=== PATIENT | male | born 1960 | race Hispanic/Latino ===

== ENCOUNTER 2019-12-16 00:19 | Inpatient (IN) | payer OTHER ==
[2019-12-16] VITALS (13 sets, daily range): BP systolic 95–136; BP diastolic 48–91
[~2019-12-16] VITALS: Ht 165.1 cm; Wt 88.9 kg
[2019-12-16 00:58] LABS: BASOPHILS % 0.2 % (0.0-1.0); EOSINOPHILS # (AUTO) 0.6 (0.0-0.4); EOSINOPHILS % 5.1 % (0.0-6.0); HEMATOCRIT 41.9 % (38.2-49.6); HEMOGLOBIN 14.1 g/dL (14.0-18.0); LYMPHOCYTES # (AUTO) 5.8 (1.0-3.2); LYMPHOCYTES % 50.7 % (18.0-39.1); MEAN CORPUSCULAR HEMOGLOBIN 29.4 pg (28-32); MEAN CORPUSCULAR HGB CONC 33.7 g/dL (31-35); MEAN CORPUSCULAR VOLUME 87.5 fL (81-99); MONOCYTES % 9.1 % (4.4-11.3); NEUTROPHILS % 34.6 % (38.7-80.0); PLATELET COUNT 229 x10e3/uL (140-360); RED BLOOD COUNT 4.79 x10e6/uL (4.3-5.7); RED CELL DISTRIBUTION WIDTH 12.9 % (11.7-14.4)
[2019-12-16] MEDS ORDERED: NITROGLYCERIN 2% OINT 1 GM PKT TOP ONE (01:00)
[2019-12-16] MEDS ORDERED: ASPIRIN 325 MG TAB PO ONE ×2 (01:00→09:00)
[2019-12-16] MEDS ORDERED: ASPIRIN 81 MG CHEW TAB ONE (01:01)
[2019-12-16] MEDS ORDERED: NITROGLYCERIN 2% OINT 1 GM PKT ONE (01:02)
[2019-12-16 01:23] LABS: ALANINE AMINOTRANSFERASE 21 IU/L (0-55); ALBUMIN 3.8 g/dL (3.5-5.0); ALKALINE PHOSPHATASE 74 IU/L (40-150); ANION GAP 13.3 mmol/L (8-16); BLOOD UREA NITROGEN 18 mg/dL (7-26); BUN/CREATININE RATIO 19 (6-25); CARBON DIOXIDE 26 mmol/L (22-29); CHLORIDE 105 mmol/L (98-107); CREATINE KINASE 91 IU/L (30-200); CREATININE, SERUM 0.96 mg/dL (0.72-1.25); EST GLOMERULAR FILTRATION RATE > 60 ML/MIN (60-); GLUCOSE 122 mg/dL (74-118); POTASSIUM 3.3 mmol/L (3.5-5.1); SODIUM 141 mmol/L (136-145)
--- NOTE | 2019-12-16 01:25 | Diagnostic Imaging Report ---
EXAMINATION: CHEST SINGLE (PORTABLE) INDICATION: Code STEMI COMPARISON: None FINDINGS: TUBES and LINES: None. LUNGS: Normal lung volumes. Lungs are clear. No consolidations. Mild prominence of central pulmonary vasculature. PLEURA: No pleural effusion or pneumothorax. HEART AND MEDIASTINUM: The cardiomediastinal silhouette is borderline enlarged. BONES AND SOFT TISSUES: No acute osseous lesion. Soft tissues are unremarkable. UPPER ABDOMEN: No free air under the diaphragm. IMPRESSION: Borderline cardiomegaly and pulmonary vascular congestion. Signed by: Jose A Loving DO on 12/16/2019 1:21 AM
[2019-12-16] MEDS ORDERED: MIDAZOLAM HCL 2 MG/2 ML VIAL ONE (01:33)
[2019-12-16] MEDS ORDERED: HEPARIN SOD (PORCINE) 1000 UNIT/ML 30ML ONE (01:33)
[2019-12-16] MEDS ORDERED: FENTANYL CITRATE/PF 100MCG/2 ML INJ ONE (01:34)
[2019-12-16] MEDS ORDERED: LIDOCAINE HCL 2% LOCAL 20 ML VIAL ONE (01:34)
[2019-12-16] MEDS ORDERED: HEPARIN SOD/SOD CHLORIDE 2,000 ML ONE (01:34)
[2019-12-16] MEDS ORDERED: IOPAMIDOL 370 MG/ML 200 ML INFUS..BTL INJ ONE (01:34)
[2019-12-16] MEDS ORDERED: SODIUM CHLORIDE 0.9% 1000ML 1,000 ML ONE (01:34)
[2019-12-16] MEDS ORDERED: NITROGLYCERIN/D5W 200 MCG/ML 250 ML ONE (01:34)
[2019-12-16] MEDS ORDERED: TICAGRELOR 90 MG TABLET ONE (01:53)
--- NOTE | 2019-12-16 02:01 | Emergency Department Note ---
History of Present Illnes History of Present Illness Chief Complaint: Chest Pain History of Present Illness This is a 59 year old male arrives to ED with substernal chest pain radiating neck started prior to arrival. Patient states he was getting ready for bed when the pain started. Patient states the pain started while he was at rest. Patient denies any diaphoresis, states pain is radiating to his neck sharp in nature. Patient denies chest pain like this in the past history of hypertension Arrival Mode: Car Radiation: neck Severity: moderate Onset quality: sudden Timing of current episode: constant Progression: worsening Chronicity: new Relieving factors: none Exacerbating factors: none Past Medical/Family History Physician Review I have reviewed the patient's past medical and family history. Any updates have been documented here. Past Medical History Recent Fever: No Clinical Suspicion of Infectio: No New/Unexplained Change in Ment: No Past Medical History: Hypertension Past Surgical History: None Social History Smoking Cessation: Never Smoker Counseling Performed: No Alcohol Use: None Any Illegal Drug Use: No TB Exposure/Symptoms: No Physically hurt or threatened: No Family History Family history of heart diseas: No Other Last Tetanus: UTD Any Pre-Existing Lines (PICC,: No Is patient up to date on immun: Yes Last Flu: DENIES Last Pneumovax: DENIES Review of Systems Review of Systems Constitutional: no symptoms EENTM: no symptoms Cardiovascular: chest pain Respiratory: no symptoms Gastrointestinal: no symptoms Genitourinary: no symptoms Musculoskeletal: no symptoms Neurological: no symptoms Psychological: no symptoms Endocrine: no symptoms Hematological/Lymphatic: no symptoms Review of other systems All other systems reviewed and negative. Physical Exam Related Data Allergies: Coded Allergies: No Known Allergies (Unverified , 12/16/19) Triage Vital Signs Vital Signs Date Time Temp Pulse Resp B/P (MAP) Pulse Ox O2 Delivery O2 Flow Rate FiO2 12/16/19 00:27 97.4 62 17 157/96 98 Vital signs reviewed: Yes Physical Exam CONSTITUTIONAL Constitutional: well-developed, well-nourished, ill appearing HENT HENT: normocephalic, atraumatic, oropharynx clear/moist, nose normal HENT L/R: left ext ear normal, right ext ear normal EYES Eyes: PERRL, conjunctivae normal NECK Neck: ROM normal PULMONARY Pulmonary: effort normal, breath sounds normal CARDIOVASCULAR Cardiovascular: regular rhythm, heart sounds normal, capillary refill normal, normal rate GASTROINTESTINAL Abdominal: soft, nontender, bowel sounds normal GENITOURINARY Genitourinary: exam deferred SKIN Skin: warm, dry MUSCULOSKELETAL Musculoskeletal: ROM normal NEUROLOGICAL Neurological: alert, oriented x 3, no gross motor or sensory deficits PSYCHOLOGICAL Psychological: mood/affect normal, judgement normal Results Laboratory Result Diagram: 12/16/19 0035 12/16/19 0035 Laboratory Laboratory Tests Test 12/16/19 00:35 White Blood Count 11.43 x10e3/uL (4.8-10.8) Red Blood Count 4.79 x10e6/uL (4.3-5.7) Hemoglobin 14.1 g/dL (14.0-18.0) Hematocrit 41.9 % (38.2-49.6) Mean Corpuscular Volume 87.5 fL (81-99) Mean Corpuscular Hemoglobin 29.4 pg (28-32) Mean Corpuscular Hemoglobin Concent 33.7 g/dL (31-35) Red Cell Distribution Width 12.9 % (11.7-14.4) Platelet Count 229 x10e3/uL (140-360) Neutrophils (%) (Auto) 34.6 % (38.7-80.0) Lymphocytes (%) (Auto) 50.7 % (18.0-39.1) Monocytes (%) (Auto) 9.1 % (4.4-11.3) Eosinophils (%) (Auto) 5.1 % (0.0-6.0) Basophils (%) (Auto) 0.2 % (0.0-1.0) Neutrophils # (Auto) 4.0 (2.1-6.9) Lymphocytes # (Auto) 5.8 (1.0-3.2) Monocytes # (Auto) 1.0 (0.2-0.8) Eosinophils # (Auto) 0.6 (0.0-0.4) Basophils # (Auto) 0.0 (0.0-0.1) Absolute Immature Granulocyte (auto 0.03 x10e3/uL (0-0.1) Sodium Level 141 mmol/L (136-145) Potassium Level 3.3 mmol/L (3.5-5.1) Chloride Level 105 mmol/L (98-107) Carbon Dioxide Level 26 mmol/L (22-29) Anion Gap 13.3 mmol/L (8-16) Blood Urea Nitrogen 18 mg/dL (7-26) Creatinine 0.96 mg/dL (0.72-1.25) Estimat Glomerular Filtration Rate > 60 ML/MIN (60-) BUN/Creatinine Ratio 19 (6-25) Glucose Level 122 mg/dL (74-118) Calcium Level 9.0 mg/dL (8.4-10.2) Total Bilirubin 0.2 mg/dL (0.2-1.2) Aspartate Amino Transf (AST/SGOT) 15 IU/L (5-34) Alanine Aminotransferase (ALT/SGPT) 21 IU/L (0-55) Alkaline Phosphatase 74 IU/L (40-150) Creatine Kinase 91 IU/L (30-200) Creatine Kinase MB 2.40 ng/mL (0-4.3) Troponin I 0.05 ng/mL (0.0-0.40) Total Protein 7.7 g/dL (6.5-8.1) Albumin 3.8 g/dL (3.5-5.0) Globulin 3.9 g/dL (2.3-3.5) Albumin/Globulin Ratio 1.0 (0.8-2.0) Lab results reviewed: Yes Imaging Imaging results reviewed: Yes Impressions IMPRESSION: Borderline cardiomegaly and pulmonary vascular congestion. Procedures 12 Lead ECG Interpretation Deli Worker: Interpreted by ED physician Prior POND WORKER tracings: reviewed Rhythm: sinus rhythm Rate: normal QRS axis: normal ST segment elevation: V2 Clinical Impression: abnormal ECG (concerns for ST elevations in isolated lead with possible T wave inversions in lead 2, however, does not meet official STEMI criteria) Critical Care Time Total Critical Care Time (min): 45 Critcal care necessary due to: circulatory failure Subsequent provider I assumed direction of critical care for this patient from another provider of my specialty. Assessment & Plan Reassessment Reassessment EKG done at [address] concerning for possible early ST elevations in V2/V3 with some reciprocal changes in inferior leads, however, did not meet official STEMI criteria. Repeat EKG requested 20 minutes which showed marked ST elevations in lateral leads V2 through the V6 with reciprocal changes in inferior leads 2, 3 and aVF. Patient's history very concerning given sudden onset of crushing chest pain 30 minutes prior to arrival. Aspirin 325, nitroglycerin given immediately upon arrival, STEMI activated at 0057 upon review of second EKG Dr. Thomas informed, patient taken to Lumber Yard Worker Assessment & Plan Final Impression: (1) STEMI INVOLVING LEFT ANTERIOR DESCENDING CORONARY ARTERY Assessment & Plan Lumber Yard Worker activated at 005 CBC, CMP, cardiac markers casing mixer informed Last Vital Signs Date Time Temp Pulse Resp B/P (MAP) Pulse Ox O2 Delivery O2 Flow Rate FiO2 12/16/19 00:27 97.4 62 17 157/96 98 Medications in the ED Aspirin 325 mg ONCE ONCE PO ; Start 12/16/19 at 01:00; Stop 12/16/19 at 01:01 Nitroglycerin 1 gm ONCE ONCE TOP ; Start 12/16/19 at 01:00; Stop 12/16/19 at 01:01 Aspirin 324 mg STK-MED ONCE .ROUTE ; Start 12/16/19 at 01:01; Stop 12/16/19 at 00:56; Status DC Nitroglycerin 1 gm STK-MED ONCE .ROUTE ; Start 12/16/19 at 01:02; Stop 12/16/19 at 00:57; Status DC Heparin Sodium (Porcine) 30,000 unit STK-MED ONCE .ROUTE ; Start 12/16/19 at 01:33; Stop 12/16/19 at 01:29; Status DC Midazolam HCl 2 mg STK-MED ONCE .ROUTE ; Start 12/16/19 at 01:33; Stop 12/16/19 at 01:29; Status DC Fentanyl Citrate 100 mcg STK-MED ONCE .ROUTE ; Start 12/16/19 at 01:34; Stop 12/16/19 at 01:29; Status DC Lidocaine HCl 400 mg STK-MED ONCE .ROUTE ; Start 12/16/19 at 01:34; Stop 12/16/19 at 01:29; Status DC Heparin Sodium/ Sodium Chloride 2,000 ml @ ud STK-MED ONCE .ROUTE ; Start 12/16/19 at 01:34; Stop 12/16/19 at 01:29; Status DC Iopamidol 148,000 mg STK-MED ONCE INJ ; Start 12/16/19 at 01:34; Stop 12/16/19 at 01:29; Status DC Sodium Chloride 1,000 ml @ ud STK-MED ONCE .ROUTE ; Start 12/16/19 at 01:34; Stop 12/16/19 at 01:29; Status DC Nitroglycerin/ Dextrose 250 ml @ STK-MED ONCE .ROUTE ; Start 12/16/19 at 01:34; Stop 12/16/19 at 01:29; Status DC EMRE YIP, December 16, 2019 02:01
[2019-12-16] MEDS ORDERED: ATROPINE SULFATE 0.1 MG/ML 10ML SYR ONE (02:10)
--- OUTSIDE RECORDS SUMMARY | 2019-12-16 03:25 | XMS REPORT ---
Author Author [facility] t Organization [facility] Address [address] [place] [address] [address] [place] [address] Phone Unavailable Care Team Providers Care Line Leader Name Role Phone MD Lm FOX PCP Dinesh YIP Attfredy Unavailable Problems This patient has no known problems. Allergies, Adverse Reactions, Alerts This patient has no known allergies or adverse reactions. Social History Social Habit Start Date Stop Date Quantity Comments Source Sex Assigned At 1960 00:00:00 1960 00:00:00 Male [facility] Medications This patient has no known medications. Vital Signs Vital Name Observation Time Observation Value Comments Source Weight 2019-12-16 00:27:00 196 [lb_av] [facility] BMI (Body Mass Index) 2019-12-16 00:27:00 32.6 kg/m2 [facility] Procedures This patient has no known procedures. Encounters Start Date/Time End Date/Time Encounter Type [facility] Encounter ID Source 2019-12-16 00:19:00 2019-12-16 01:30:00 Departed Emergency Room 1 EMRE YIP [facility] [id number] I [facility] Results Test Description Test Time Test Comments Results Result Comments Source CHEST SINGLE (PORTABLE) 2019-12-16 01:20:00 [facility] [address] [place], [place] [address] Patient Name: CHYNA DUNLAP MR #: [id number] : 1960 Age/Sex: 59/M Req #: [id number] Adm Physician: Ordered by: EMRE YIP DO Report #: [id number] Location: ER Room/Bed: Procedure: [id number] DX/CHEST SINGLE (PORTABLE) Exam Date: 12/16/19 Exam Time: 0105 REPORT STATUS: Signed EXAMINATION: CHEST SINGLE (PORTABLE) INDICATION: Code STEMI COMPARISON: None FINDINGS: TUBES and LINES: None. LUNGS: Normal lung volumes. Lungs are clear. No consolidations. Mild prominence of central pulmonary vasculature. PLEURA: No pleural effusion or pneumothorax. HEART AND MEDIASTINUM: The cardiomediastinal silhouette is borderline enlarged. BONES AND SOFT TISSUES: No acute osseous lesion. Soft tissues are unremarkable. UPPER ABDOMEN: No free air under the diaphragm. IMPRESSION: Borderline cardiomegaly and pulmonary vascular congestion. Signed by: Jose A Loving DO on 12/16/2019 1:21 AM Dictated By: JOSE A LOVING DO 0 Transcribed By: KATHERINE on 12/16/19120 COPY TO: EMRE YIP DO Blood leukocytes automated count (number/volume) 2019-12-16 00:35:00 Test Item White Blood Count (test code = 6690-2) 11.43 4.8-10.8 [facility] (number/volume)2019-12-16 00:35:00* Test Item Value Reference Range Interpretation Comments Red Blood Count (test code = 789-8) 4.79 4.3-5.7 [facility] measurement (moles/volume)2019-12-16 00:35:00* Test Item Value Reference Range Interpretation Comments Hemoglobin (test code = 70152-3) 14.1 14.0-18.0 [facility] hematocrit (volume fraction)2019-12-16 00:35:00* Test Item Value Reference Range Interpretation Comments Hematocrit (test code = 4544-3) 41.9 38.2-49.6 [facility] eryth[facility] mean corpuscular [id number] 00:35:00* Test Item Value Reference Range Interpretation Comments Mean Corpuscular Volume (test code = 787-2) 87.5 81-99 [facility] mean corpuscular hemoglobin (mass per erythrocyte)2019-12-16 00:35:00* Test Item Value Reference Range Interpretation Comments Mean Corpuscular Hemoglobin (test code = 785-6) 29.4 28-32 [facility] erythrocyte mean corpuscular hemoglobin concentration measurement (mass/volume)2019-12-16 00:35:00* Test Item Value Reference Range Interpretation Comments Mean Corpuscular Hemoglobin Concent (test code = 786-4) 33.7 31-35 [facility] HospitalRDW [id number]-[id number] 00:35:00* Test Item Value Reference Range Interpretation Comments Red Cell Distribution Width (test code = 37443-3) 12.9 11.7 -14.4 [facility] blood platelet count (count/volume)2019-12-16 00:35:00* Test Item Value Reference Range Interpretation Comments Platelet Count (test code = 777-3) 229 140-360 [facility]Aut[facility] segmented neutrophil count as percentage of total xuqjutyjki6366-13-09 00:35:00* Test Item Value Reference Range Interpretation Comments Neutrophils (%) (Auto) (test code = 52333-1) 34.6 38.7-80.0 [facility]Autb[facility]ed blood lymphocyte count as percentage ot total bysnqsnjog0293-52-20 00:35:00* Test Item Value Reference Range Interpretation Comments Lymphocytes (%) (Auto) (test code = 736-9) 50.7 18.0-39.1 [facility]Autom[facility] blood monocyte count as percentage of total jlkpjdvvzi5637-04-34 00:35:00* Test Item Value Reference Range Interpretation Comments Monocytes (%) (Auto) (test code = 5905-5) 9.1 4.4-11.3 [facility] blood eosinophil count as percentage of total ihchxbmooo4175-78-90 00:35:00* Test Item Value Reference Range Interpretation Comments Eosinophils (%) (Auto) (test code = 713-8) 5.1 0.0-6.0 [facility] blood basophil count as percentage of total wsshaukofv8068-52-43 00:35:00* Test Item Value Reference Range Interpretation Comments Basophils (%) (Auto) (test code = 706-2) 0.2 0.0-1.0 [facility] HospitalFluoroscopic procedure less than one hour [id number] 00:35:00* Test Item Value Reference Range Interpretation Comments IM GRANULOCYTES % (test code = IM GRANULOCYTES %) 0.3 0.0- 1.0 [facility] HospitalAutom[facility] blood neutrophil count 2019-12-16 00:35:00* Test Item Value Reference Range Interpretation Comments Neutrophils # (Auto) (test code = 751-8) 4.0 2.1-6.9 [facility] lymphocytes count (number/volume) 2019-12-16 00:35:00* Test Item Value Reference Range Interpretation Comments Lymphocytes # (Auto) (test code = 80143-7) 5.8 1.0-3.2 [facility] monocytes automated count (number/volume)2019-12-16 00:35:00* Test Item Value Reference Range Interpretation Comments Monocytes # (Auto) (test code = 742-7) 1.0 0.2-0.8 [facility] HospitalAutom[facility] blood eosinophil count 2019-12-16 00:35:00* Test Item Value Reference Range Interpretation Comments Eosinophils # (Auto) (test code = 711-2) 0.6 0.0-0.4 [facility] HospitalAutom[facility] blood basophil count (count/volume)2019-12-16 00:35:00* Test Item Value Reference Range Interpretation Comments Basophils # (Auto) (test code = 704-7) 0.0 0.0-0.1 [facility] HospitalFluoroscopic procedure less than one hour vkywneza6035-74-89 00:35:00* Test Item Value Reference Range Interpretation Comments Absolute Immature Granulocyte (auto (sara t code = Absolute Immature Granulocyte (auto) 0.03 0-0.1 [facility] or plasma sodium measurement (moles/volume)2019-12-16 00:35:00* Test Item Value Reference Range Interpretation Comments Sodium Level (test code = 2951-2) 141 136-145 [facility]ererum or plasma potassium measurement (moles/volume)2019-12-16 00:35:00* Test Item Value Reference Range Interpretation Comments Potassium Level (test code = 2823-3) 3.3 3.5-5.1 [facility]ererum or plasma chloride measurement (moles/volume)2019-12-16 00:35:00* Test Item Value Reference Range Interpretation Comments Chloride Level (test code = 2075-0) 105 98-107 [facility]ererum or plasma carbon dioxide, total measurement (moles/volume)2019-12-16 00:35:00* Test Item Value Reference Range Interpretation Comments Carbon Dioxide Level (test code = 2028-9) 26 22-29 [facility] Centererum or plasma anion [id number] 00:35:00* Test Item Value Reference Range Interpretation Comments Anion Gap (test code = 00258-2) 13.3 8-16 [facility]ererum or plasma urea nitrogen measurement (mass/volume)2019-12-16 00:35:00* Test Item Value Reference Range Interpretation Comments Blood Urea Nitrogen (test code = 3094-0) 18 7-26 [facility]ererum or plasma creatinine measurement (mass/volume)2019-12-16 00:35:00* Test Item Value Reference Range Interpretation Comments Creatinine (test code = 2160-0) 0.96 0.72-1.25 [facility]ererum or plasma urea nitrogen/creatinine mass [id number] 00:35:00* Test Item Value Reference Range Interpretation Comments BUN/Creatinine Ratio (test code = 3097-3) 19 6-25 [facility] HospitalEstimated glomerular filtration rate (GFR) grnjvtytmwiny4845-30-51 00:35:00* Test Item Value Reference Range Interpretation Comments Estimat Glomerular Filtration Rate (test code = 621270243) > 60 >60 Ranges were taken from the National Kidney Disease Education Program and the Counts include 234 beds at the [facility] Kidney Foundation literature.Reference ranges:60 or greater: Ynrndl58-69 ( for 3 consecutive months): Chronic kidney disease 15 or less: Kidney failureMidland Memorial HospitalGlucose mvospddbxln8987-48-46 00:35:00* Test Item Value Reference Range Interpretation Comments Glucose Level (test code = EGZ9594) 122 74-118 [facility]ererum or plasma calcium measurement (mass/volume)2019-12-16 00:35:00* Test Item Value Reference Range Interpretation Comments Calcium Level (test code = 41904-9) 9.0 8.4-10.2 [facility]ererum or plasma total bilirubin measurement (mass/volume)2019-12-16 00:35:00* Test Item Value Reference Range Interpretation Comments Total Bilirubin (test code = 1975-2) 0.2 0.2-1.2 [facility] HospitalFluoroscopic procedure less than one hour fdfzqora1327-31-59 00:35:00* Test Item Value Reference Range Interpretation Comments Aspartate Amino Transf (AST/SGOT) (test code = Aspartate Amino Transf (AST/SGOT)) 15 5-34 [facility] Centererum or plasma alanine aminotransferase measurement (enzymatic activity/volume)2019-12-16 00:35:00* Test Item Value Reference Range Interpretation Comments Alanine Aminotransferase (ALT/SGPT) (test code = 1742-6) 21 0-55 [facility] Centererum or plasma protein measurement (mass/volume)2019-12-16 00:35:00* Test Item Value Reference Range Interpretation Comments Total Protein (test code = 2885-2) 7.7 6.5-8.1 [facility] Centererum or plasma albumin measurement (mass/volume)2019-12-16 00:35:00* Test Item Value Reference Range Interpretation Comments Albumin (test code = 1751-7) 3.8 3.5-5.0 [facility] HospitalPlasma globulin measurement (mass/volume) 2019-12-16 00:35:00* Test Item Value Reference Range Interpretation Comments Globulin (test code = 56181-2) 3.9 2.3-3.5 [facility] Centererum or plasma albumin/globulin mass [id number] 00:35:00* Test Item Value Reference Range Interpretation Comments Albumin/Globulin Ratio (test code = 1759-0) 1.0 0.8-2.0 [facility] Centererum or plasma alkaline phosphatase measurement (enzymatic activity/volume)2019-12-16 00:35:00* Test Item Value Reference Range Interpretation Comments Alkaline Phosphatase (test code = 6768-6) 74 40-150 [facility] Centererum or plasma creatine kinase measurement (enzymatic activity/volume)2019-12-16 00:35:00* Test Item Value Reference Range Interpretation Comments Creatine Kinase (test code = 2157-6) 91 30-200 [facility] Centererum or plasma creatine kinase MB measurement (mass/volume)2019-12-16 00:35:00* Test Item Value Reference Range Interpretation Comments Creatine Kinase MB (test code = 38163-8) 2.40 0-4.3 [facility] Centererum or plasma troponin i.cardiac measurement (mass/volume)2019-12-16 00:35:00* Test Item Value Reference Range Interpretation Comments Troponin I (test code = 08382-8) 0.05 0.0-0.40 [facility]
--- NOTE | 2019-12-16 04:44 | Consultation ---
DATE OF CONSULTATION: Cardiology Consultation HISTORY OF PRESENT ILLNESS: This is a 59-year-old man with no significant past medical history, presented to the emergency room with ongoing chest pain. The patient's chest pain was central and left-sided, non-radiating, associated with shortness of breath. No other exacerbating or relieving factors. The patient was found to have a right bundle branch block with anterolateral ST elevations. He was taken to the cardiac catheterization laboratory and his LAD was occluded and was intervened on. REVIEW OF SYSTEMS: A 12-point review of system was conducted, is negative, except as stated in the HPI. PAST MEDICAL HISTORY: As stated above in the HPI. PAST SURGICAL HISTORY: None recent. PAST FAMILY HISTORY: Noncontributory to current illness. SOCIAL HISTORY: No illicit drug, alcohol, or tobacco use. ALLERGIES: NO KNOWN DRUG ALLERGIES. MEDICATIONS: See medication reconciliation form. PHYSICAL EXAMINATION: VITAL SIGNS: Temperature is 97.4, heart rate is 62, respirations 17, blood pressure is 157/96, oxygen saturation 98% on room air. GENERAL: A well appearing, well built, in no apparent distress. Alert and oriented x3. HEENT: Head is normocephalic and atraumatic. Eyes, extraocular muscles are intact. Conjunctivae were clear. NECK: No JVD. No bruits. CARDIOVASCULAR: Regular rate and rhythm. LUNGS: Clear to auscultation. ABDOMEN: Soft, nontender, nondistended. EXTREMITIES: No clubbing, cyanosis, or edema. VASCULAR: 2+ pulses. SKIN: Warm, dry, and intact. NEUROLOGIC: No focal deficits noted. LABORATORY DATA: All laboratory data reviewed, notable for potassium of 3.3. Troponin of 0.05. Electrocardiogram shows nonspecific intraventricular conduction delay with anterolateral ST elevations and normal sinus rhythm. IMPRESSION: 1. Anterolateral ST-elevation myocardial infarction. 2. Coronary artery disease. 3. Hyperlipidemia. 4. Hypertension. 5. Acute systolic congestive heart failure. RECOMMENDATIONS: The patient underwent percutaneous coronary intervention of left anterior descending coronary artery. His ejection fraction is at the low limits of normal. We will continue aspirin, Brilinta, atorvastatin, Toprol-XL, and we will check a 2D echocardiogram. Sergio Thomas DO BM/MODL /[id number]
--- NOTE | 2019-12-16 04:54 | Operative Report ---
DATE OF PROCEDURE: SURGEON: Sergio Thomas DO PROCEDURES PERFORMED: 1. Conscious sedation, 1 hour. 2. Selective coronary angiography x2. 3. Left heart catheterization with ventriculography. 4. Percutaneous coronary intervention of the left anterior descending coronary artery during an acute myocardial infarction. PRE-PROCEDURE DIAGNOSIS: Anterolateral ST-elevation myocardial infarction. POST PROCEDURE DIAGNOSIS: Anterolateral ST-elevation myocardial infarction. ESTIMATED BLOOD LOSS: Less than 20 mL. SPECIMENS REMOVED: None. PROCEDURE IN DETAIL: After informed consent was obtained, the patient was brought to the cardiac catheterization laboratory in a fasting and nonsedated state. Bilateral groins were prepped and draped in the usual sterile fashion. A 2% lidocaine was used for the right anterior groin for local anesthesia. Using micropuncture needle, the right common femoral artery was accessed via modified Seldinger technique and a 6-Slovenian sheath was placed. The patient received Fentanyl and midazolam, and his neurologic and physiologic status was monitored by myself and the laborer hoisting staff. Diagnostic coronary angiography was performed and revealed an occluded mid LAD. The patient received systemic heparin for therapeutic anticoagulation. Left main was cannulated with XB LAD 3.5 guiding catheter. A whisper wire was backloaded into an [id number] balloon and both were crossed the lesion. Distal injection confirmed intraluminal status. Next, a Runthrough wire was inserted and the same 2.5 x 12 balloon was used for angioplasty. This restored flow. Next, the lesion was stented with a 2.5 x 28 Synergy drug-eluting stent. This was then post dilated with the same balloon. Final angiography confirmed excellent results. Next, right coronary angiography and left ventriculography were performed. The patient tolerated the procedure well with no immediate complication and transferred back to his room in stable condition. PROCEDURAL FINDINGS: 1. Left main coronary artery is patent. 2. Proximal LAD is patent. The first diagonal branch is a small vessel with a 50% to 60% mid stenosis. The mid LAD is 100% occluded. 3. Left circumflex coronary artery provides one obtuse marginal vessel with luminal irregularities. 4. The right coronary artery is a dominant vessel and provides the posterior descending coronary artery and has mid 40% stenosis. 5. Left ventricular end-diastolic pressure is 10 mmHg with no aortic valve gradient present upon pullback. 6. The left ventriculography confirmed ejection fraction of 50% to 55% with [id number] anteroseptal hypokinesis. INTERVENTION RESULTS: Successful percutaneous coronary intervention of left anterior descending coronary artery. Pre-PCI SAMPSON flow was 0. Post-PCI SAMPSON flow was 3. Postprocedure stenosis was less than 10%. IMPRESSION: Anterolateral ST elevation myocardial infarction. RECOMMENDATIONS: Continue aggressive medical therapy. DO MARKUS Vigil/PEDRO /[id number]
[2019-12-16] MEDS ORDERED: MORPHINE SULFATE INJ 4 MG/ML INJ 1ML IV PRN ×2 (05:45→13:15)
[2019-12-16 06:32] LABS: CREATINE KINASE MB 138.7 ng/mL (0-5.0)
--- NOTE | 2019-12-16 06:45 | NUR ---
Patient had critical lab value, Dr. Thomas called and message left, no call back, endorsed to left shift for continuity of care.
[2019-12-16] MEDS ORDERED: TICAGRELOR 90 MG TABLET PO SCH (09:00)
[2019-12-16] MEDS ORDERED: METOPROLOL TARTRATE 25 MG TAB PO SCH ×2 (09:00→17:00)
--- NOTE | 2019-12-16 11:30 | NUR ---
Dr. Milton Thomas notified of elevated troponin new orders received to give a dose of Lopressor 25mg PO ONCE and change Lopressor 25mg to 50mg PO BID
[2019-12-16] MEDS ORDERED: METOPROLOL TARTRATE 25 MG TAB PO NR (12:00)
[2019-12-16] MEDS: ASPIRIN 81 MG CHEW TAB PO ONE ×3 (12:23→12:50)
[2019-12-16] MEDS: CLOPIDOGREL BISULFATE 75 MG TAB PO SCH ×2 (12:27→12:50)
[2019-12-16] MEDS ORDERED: ONDANSETRON HCL INJ 2MG/ML 2ML 2 MG/ML VIAL IV PRN (13:15)
[2019-12-16] MEDS: METOPROLOL TARTRATE 50 MG TAB PO SCH (18:43)
[2019-12-16 19:05] LABS: ANION GAP 16.2 mmol/L (8-16); BLOOD UREA NITROGEN 14 mg/dL (7-26); BUN/CREATININE RATIO 17 (6-25); CALCIUM 9.1 mg/dL (8.4-10.2); CARBON DIOXIDE 18 mmol/L (22-29); CHLORIDE 108 mmol/L (98-107); CREATININE, SERUM 0.82 mg/dL (0.72-1.25); EST GLOMERULAR FILTRATION RATE > 60 ML/MIN (60-); GLUCOSE 122 mg/dL (74-118); POTASSIUM 4.2 mmol/L (3.5-5.1); SODIUM 138 mmol/L (136-145)
[2019-12-16] MEDS: ATORVASTATIN 20 MG TAB PO SCH (21:24)
--- NOTE | 2019-12-16 21:50 | NUR ---
RECEIVED PATIENT FROM [facility]. ALERT AND ORIENTED. BED IN LOWEST POSITION. BED ALARM ON.
--- NOTE | 2019-12-16 23:25 | History and Physical ---
CHIEF COMPLAINT: Chest pain. HISTORY OF PRESENT ILLNESS: This is a 59-year-old male, morbidly obese, history of hypertension, came in last night with complaints of substernal chest pain that began acutely. The patient reports he was in the process of going to bed, suddenly noticed having acute crushing chest pain that lasted for more than 10 minutes. His brought him to the hospital for further evaluation and management. EKG was consistent with a STEMI in which the patient was taken to the labor and delivery registered nurse by Cardiology. The patient underwent PCI intervention as well. The patient was seen postprocedurally, he is currently doing well with no other issues. Denies any chest pain, palpitation, nausea, or vomiting. REVIEW OF SYSTEMS: Pertinent positives chest pain. The rest of 14-point review of systems are reviewed with the patient and are negative. ALLERGIES: NO KNOWN DRUG ALLERGIES. HOME MEDICATIONS: None are documented. He is supposed to be bringing us his home medications. PAST MEDICAL HISTORY: Hypertension. PAST SURGICAL HISTORY: Reports none. FAMILY HISTORY: Reports none. SOCIAL HISTORY: Does not smoke. No drugs. No alcohol. He does still work. PHYSICAL EXAMINATION: VITAL SIGNS: Temperature is 98, pulse 103, respiratory rate is 14, blood pressure 117/84, pulse ox 98% on room air. GENERAL: Not in acute distress, alert and oriented x3. Cooperative on examination. HEENT: Head normocephalic, atraumatic. EYES: Pupils are reactive to light bilaterally. Extraocular movements intact bilaterally. NECK: Supple. Good range of motion. PULMONARY: Clear to auscultation bilaterally. No wheezing, rales, or rhonchi. No crackles appreciated. CARDIOVASCULAR: Positive S1, S2. No murmurs or gallops appreciated. ABDOMEN: Soft, nondistended, nontender to palpation. Bowel sounds present. MUSCULOSKELETAL: Strength is 5/5 throughout. SKIN: Intact, warm to touch. Good cap refill. PSYCHIATRIC: Normal affect and mood. Extremities: No edema. Good range of motion throughout. LABORATORY DATA: Show white count 11, hemoglobin 14, hematocrit 41, platelets of 229,000. Chemistry; sodium 141, potassium 3.3, chloride 105, bicarb is 26, anion gap of 13, BUN is 18, creatinine glucose 122. LFTs within normal range. Calcium 9, albumin 3.8. Troponin stacie as high as 28. Serologies, berry virus PCR is pending. IMAGING STUDIES: Chest x-ray shows some borderline cardiomegaly with pulmonary vascular congestion. IMPRESSION: 1. STEMI, status post left heart catheterization with PCI performed early this morning with successful PCI in the left anterior descending artery. 2. Hypertension. PLAN: At this time, continue with dual anti-platelet therapy aspirin, Plavix, statin, and beta-blockade. He will be discharged on an MAYURI or an ARB. He is currently doing very well. Resume same home medications once they are available. Nutrition will be heart healthy diet. He has already been loaded with heparin and Plavix, which we will go ahead and just continue with dual anti-platelet therapy for DVT prophylaxis. MD SP Mast/MODL /[id number]
[2019-12-17] VITALS (7 sets, daily range): BP systolic 114–149; BP diastolic 77–94
[2019-12-17 05:11] LABS: BASOPHILS % 0.3 % (0.0-1.0); EOSINOPHILS # (AUTO) 0.3 (0.0-0.4); EOSINOPHILS % 2.4 % (0.0-6.0); HEMATOCRIT 41.4 % (38.2-49.6); HEMOGLOBIN 13.9 g/dL (14.0-18.0); LYMPHOCYTES # (AUTO) 3.6 (1.0-3.2); LYMPHOCYTES % 30.3 % (18.0-39.1); MEAN CORPUSCULAR HEMOGLOBIN 29.4 pg (28-32); MEAN CORPUSCULAR HGB CONC 33.6 g/dL (31-35); MEAN CORPUSCULAR VOLUME 87.5 fL (81-99); MONOCYTES # (AUTO) 1.1 (0.2-0.8); MONOCYTES % 9.2 % (4.4-11.3); NEUTROPHILS # (AUTO) 6.9 (2.1-6.9); NEUTROPHILS % 57.5 % (38.7-80.0); PLATELET COUNT 200 x10e3/uL (140-360); RED BLOOD COUNT 4.73 x10e6/uL (4.3-5.7); RED CELL DISTRIBUTION WIDTH 13.3 % (11.7-14.4)
[2019-12-17 05:30] LABS: ANION GAP 12.1 mmol/L (8-16); BLOOD UREA NITROGEN 12 mg/dL (7-26); BUN/CREATININE RATIO 16 (6-25); CALCIUM 8.8 mg/dL (8.4-10.2); CARBON DIOXIDE 24 mmol/L (22-29); CHLORIDE 105 mmol/L (98-107); CREATININE, SERUM 0.77 mg/dL (0.72-1.25); EST GLOMERULAR FILTRATION RATE > 60 ML/MIN (60-); GLUCOSE 98 mg/dL (74-118); POTASSIUM 4.1 mmol/L (3.5-5.1); SODIUM 137 mmol/L (136-145)
[2019-12-17 05:55] LABS: THYROID STIMULATING HORMONE 11.706 uIU/mL (0.350-4.940)
[2019-12-17 05:57] LABS: CHOL/HDL RATIO 3.9 (3.9-4.7)
--- NOTE | 2019-12-17 07:02 | NUR ---
BEDSIDE SHIFT REPORT RECEIVED FROM TUBE SORTER RN. PT AWAKE, ALERT, IN STABLE CONDITION.
[2019-12-17] MEDS ORDERED: ASPIRIN 81 MG ENTERIC COATED PO SCH (09:00)
[2019-12-17] MEDS ORDERED: ASPIRIN 81 MG CHEW TAB PO ONE (09:00)
[2019-12-17] MEDS: METOPROLOL TARTRATE 50 MG TAB PO SCH ×2 (09:30→17:23)
[2019-12-17] MEDS: CLOPIDOGREL BISULFATE 75 MG TAB PO SCH (09:30)
--- NOTE | 2019-12-17 11:26 | Progress Note ---
DATE: 12/17/2019 Cardiology Progress Note SUBJECTIVE: The patient denies chest pain or shortness of breath. OBJECTIVE: VITAL SIGNS: Temperature 97.9 degrees, pulse 65, respiratory rate 16, blood pressure 136/83, and oxygen saturation 100% on room air. GENERAL: Awake, alert, in no acute distress. LUNGS: Clear to auscultation bilaterally. No wheezes or crackles. CARDIOVASCULAR: Normal rate. Regular rhythm. No murmur. Normal S1, S2. ABDOMEN: Soft, nontender. EXTREMITIES: No edema. CARDIAC MEDICATIONS: Aspirin 81 mg p.o. daily, Plavix 75 mg p.o. daily, metoprolol tartrate 50 mg p.o. b.i.d., and atorvastatin 80 mg p.o. at bedtime. LABORATORY DATA: WBC 11.95, hemoglobin 13.9, hematocrit 41.4, and platelets 200. Sodium 137, potassium 4.1, chloride 105, CO2 of 24, BUN 12, and creatinine 0.77. TELEMETRY: Telemetry was personally reviewed and interpreted, revealing normal sinus rhythm with occasional PVCs. IMPRESSION: 1. Anterolateral ST-elevation myocardial infarction. 2. Coronary artery disease, status post PCI of the LAD. 3. Hypertension. 4. Hyperlipidemia. RECOMMENDATIONS: Continue dual antiplatelet therapy and high dose statin. Continue beta alfredo. Echocardiogram is pending. We will review images once available. Monitor the patient closely on telemetry. Further recommendations pending review of test results. Thank you for this consult. We will continue to follow. Patricia Bush MD ABS/MODL /[id number]
--- NOTE | 2019-12-17 17:08 | NUR ---
REPORT GIVEN TO KATRINA LOUIS. PT IN STABLE CONDITION.
--- NOTE | 2019-12-17 19:23 | NUR ---
Resumed care of patient. Patient awake and resting in bed, no s/s of distress, denies needs at this time. All safety measures in place. Will continue to monitor.
--- NOTE | 2019-12-17 19:34 | NUR ---
Placed call to Dr. Thomas/Dr. Bush's office to ask about echo results and discharge orders. Awaiting return call at this time.
[2019-12-17] MEDS ORDERED: LEVOTHYROXINE50 MCG PO (19:51)
[2019-12-17] MEDS: ATORVASTATIN 20 MG TAB PO SCH (20:08)
--- NOTE | 2019-12-17 21:06 | NUR ---
Called Dr. Bush who states that patient is okay to DC home after normal echo.
--- NOTE | 2019-12-18 03:37 | Discharge Summary ---
FINAL DISCHARGE DIAGNOSES: 1. ST-elevation myocardial infarction, status post left heart catheterization with percutaneous coronary intervention, successful in the LAD stent placement. 2. Hypertension. 3. Hypothyroidism. CONSULTANTS: Cardiology. PHYSICAL EXAMINATION: VITAL SIGNS: Temperature is 98.3, pulse 71, respiratory rate is 18, blood pressure 149/94, pulse ox 100% on room air. LABORATORY DATA: Labs show white count was 11, hemoglobin 13.9, hematocrit 41, platelets of 200. Chemistry; sodium 137, potassium 4.1, chloride 105, bicarb 24, anion gap of 12, BUN 12 and creatinine 0.77, glucose 98. Hemoglobin A1c 5.6, calcium is 8.8. His troponin peaked at 28. LDL was 107. TSH is 11.7, albumin 3.8. Serology coronavirus PCR was still pending upon discharge. IMAGING STUDIES: Chest x-ray shows borderline cardiomegaly, pulmonary vascular congestion. HOSPITAL COURSE: A 59-year-old male, came into the ED with crushing substernal chest pain, came into the ED for further evaluation and management. EKG showed a STEMI, in which the patient was taken to the heart catheterization emergently by Cardiology. The patient underwent successful percutaneous coronary intervention of the left anterior descending artery with one stent placed. The patient did well postprocedurally with no complaints. A 2D echo shows an EF of 50% to 55%. The patient was started on dual anti-platelet therapy as well as cardioprotective medications. The patient was doing well postprocedurally. He is currently chest pain-free prior to being discharged to home. The patient was cleared for discharge by Cardiology. On the day of discharge, vital signs were stable, labs reviewed and stable. The patient is seen, evaluated, and examined thoroughly on the day of discharge. No other complaints. The patient verbalized understanding and agrees to plan of care to follow up accordingly as an outpatient with primary care physician in 1 week and source water protection specialist in 2 weeks' time. The patient was discharged on cardioprotective medications as recommended by Cardiology. MEDICATIONS: See med reconciliation form including Plavix, aspirin, statin, losartan, beta-blockade, and levothyroxine. CONDITION: Stable. DIET: Heart healthy. In the event of worsening symptoms, the patient advised to come back to the ED for further evaluation. Discharge summary took greater than 35 minutes. MD SP Mast/PEDRO /[id number]
== END 2019-12-17 21:52 | disposition home or self-care (01) | DRG 246 ==
LOC: ER 00:19 → ERHOLD 03:22 → IMCU 03:24 → MED/SURG 21:49
PROVIDERS: ADMIT Internal Medicine; ATTEND Internal Medicine
PROC: 027034Z Dilation of Coronary Artery, One Artery with Drug-eluting Intraluminal Device, Percutaneous Approach (ICD-10-PCS; principal; 2019-12-16)
PROC: 4A023N7 Measurement of Cardiac Sampling and Pressure, Left Heart, Percutaneous Approach (ICD-10-PCS; 2019-12-16)
PROC: B2111ZZ Fluoroscopy of Multiple Coronary Arteries using Low Osmolar Contrast (ICD-10-PCS; 2019-12-16)
PROC: B2151ZZ Fluoroscopy of Left Heart using Low Osmolar Contrast (ICD-10-PCS; 2019-12-16)
DX: I21.09 ST elevation (STEMI) myocardial infarction involving other coronary artery of anterior wall (principal); I50.21 Acute systolic (congestive) heart failure; I25.10 Atherosclerotic heart disease of native coronary artery without angina pectoris; E78.5 Hyperlipidemia, unspecified; I11.0 Hypertensive heart disease with heart failure; E03.9 Hypothyroidism, unspecified
CPT/HCPCS: 36415; 71045; 80048; 80053; 80061; 82550; 82553; 83036; 83880; 84443; 84484; 85025; 92928; 93005; 93306; 93458; 99152; 99153; 99285; C1725; C1760; C1766; C1769; C1874; J1644; J2001; J2250; J3010; J7030; Q9967; U0002

== ENCOUNTER 2024-05-31 09:49 | Day surgery (SDC) | payer MEDICARE ==
[2024-05-29 10:23] LABS: BASOPHILS % 0.3 % (0.0-1.0); EOSINOPHILS # (AUTO) 0.3 (0.0-0.4); EOSINOPHILS % 3.6 % (0.0-6.0); HEMATOCRIT 42.3 % (38.2-49.6); HEMOGLOBIN 13.9 g/dL (14.0-18.0); LYMPHOCYTES # (AUTO) 2.5 (1.0-3.2); LYMPHOCYTES % 27.9 % (18.0-39.1); MEAN CORPUSCULAR HEMOGLOBIN 30.9 pg (28-32); MEAN CORPUSCULAR HGB CONC 32.9 g/dL (31-35); MONOCYTES # (AUTO) 0.7 (0.2-0.8); MONOCYTES % 7.4 % (4.4-11.3); NEUTROPHILS # (AUTO) 5.5 (2.1-6.9); NEUTROPHILS % 60.6 % (38.7-80.0); PLATELET COUNT 189 x10e3/uL (140-360); RED CELL DISTRIBUTION WIDTH 12.4 % (11.7-14.4)
[2024-05-29 10:38] LABS: INR 0.98; PROTHROMBIN TIME 13.6 seconds (11.9-14.5)
[2024-05-29 10:43] LABS: ALBUMIN 3.8 g/dL (3.5-5.0); ALBUMIN/GLOBULIN RATIO 1.2 (0.8-2.0); ANION GAP 11.3 mmol/L (8-16); BILIRUBIN,TOTAL 0.7 mg/dL (0.2-1.2); CALCIUM 9.1 mg/dL (8.4-10.2); CHOL/HDL RATIO 2.9 (3.9-4.7); CREATININE, SERUM 0.86 mg/dL (0.72-1.25); POTASSIUM 4.3 mmol/L (3.5-5.1)
[2024-05-31] VITALS (14 sets, daily range): BP systolic 104–145; BP diastolic 73–88; PULSE 51–63; RESP 11–20; TEMP 97.5–98.1; O2SAT 99–100
[~2024-05-31] VITALS: Ht 165.1 cm; Wt 78.9 kg
[~2024-05-31 09:49] MED LIST: ATENOLOL50 MG PO; CLOPIDOGREL75 MG PO; LEVOTHYROXINE50 MCG PO; LIPITOR20 MG PO; LOSARTAN POTASS25 MG PO
[2024-05-31] MEDS ORDERED: HEPARIN SOD/SOD CHLORIDE 2,000 ML ONE (10:03)
[2024-05-31] MEDS ORDERED: IOPAMIDOL 370 MG/ML 100 ML INFUS..BTL INJ ONE (10:03)
[2024-05-31] MEDS ORDERED: LIDOCAINE HCL 1% LOCAL INJ 20 ML VIAL ONE (10:03)
[2024-05-31] MEDS ORDERED: HEPARIN SOD (PORCINE) 1000 UNIT/ML 30ML ONE (12:26)
[2024-05-31] MEDS ORDERED: SODIUM CHLORIDE 0.9% 1000ML 1,000 ML ONE (12:27)
[2024-05-31] MEDS ORDERED: VERAPAMIL HCL 2.5 MG/ML 2 ML VIAL ONE (12:27)
[2024-05-31] MEDS ORDERED: NITROGLYCERIN/D5W 200 MCG/ML 250 ML ONE (12:27)
[2024-05-31] MEDS ORDERED: MIDAZOLAM HCL 2 MG/2 ML VIAL ONE ×2 (12:49→13:23)
[2024-05-31] MEDS ORDERED: FENTANYL CITRATE/PF 100MCG/2 ML INJ ONE (12:49)
[2024-05-31] MEDS ORDERED: ASPIRIN 81 MG CHEW TAB ONE (13:26)
[2024-05-31] MEDS ORDERED: CLOPIDOGREL BISULFATE 75 MG TAB ONE (13:26)
== END 2024-05-31 17:15 | disposition home or self-care (01) ==
LOC: CATH LAB 09:49
PROVIDERS: ATTEND Internal Medicine Cardiovascular Disease
DX: I25.10 Atherosclerotic heart disease of native coronary artery without angina pectoris (principal); R94.39 Abnormal result of other cardiovascular function study; I10 Essential (primary) hypertension; E78.5 Hyperlipidemia, unspecified; I25.2 Old myocardial infarction; Z01.812 Encounter for preprocedural laboratory examination; Z79.02 Long term (current) use of antithrombotics/antiplatelets; Z79.899 Other long term (current) drug therapy; Z68.41 Body mass index [BMI] 40.0-44.9, adult; Z86.16 Personal history of COVID-19; Z95.5 Presence of coronary angioplasty implant and graft
CPT/HCPCS: 36415; 76937; 80053; 80061; 85025; 85610; C1725; C1874; C1887; C9600; J1644; J2003; J2250; J3010; J7030; Q9967; 92928; 93458; 99152; 99153